=== PATIENT | female | born 1960 | race Caucasian/White ===

== ENCOUNTER 2018-08-09 15:47 | Emergency (ER) | payer MEDICARE ==
[~2018-08-09] VITALS: Ht 167.6 cm; Wt 64.5 kg
[~2018-08-09 15:47] MED LIST: CYMBALTA 30MG30 MG PO; DESYREL 100MG100 MG PO; GEODON 40MG40 MG PO; NEURONTIN800 MG/TAB PO; NORCO 325 MG-7.1 TAB PO; PHENERGAN 25 TA25 MG PO; RT SPIRIVA18 MCG IH; SINGULAIR 110 MG/TAB PO; SOMA 350MG350 MG/TAB PO; TEGRETOL 2200 MG/TA1 PO; ZONEGRAN 100MG100 MG PO; ZYRTEC 10MG10 MG PO
[2018-08-09 15:48] VITALS: BP 115/89; TEMP 97.8
[2018-08-09] MEDS ORDERED: KLONOPIN 0.5MG0.5 MG PO (17:11)
[2018-08-09] MEDS ORDERED: FERRO-TIME325 MG PO (17:11)
[2018-08-09] MEDS ORDERED: FLOVENT DI50 MCG/Act IH (17:12)
[2018-08-09] MEDS ORDERED: PRILOSEC 20MG20 MG PO (17:12)
[2018-08-09] MEDS ORDERED: SEROQUEL400 MG PO (17:13)
[2018-08-09] MEDS ORDERED: SEROQUEL50 MG PO ×2 (17:13→17:23)
[2018-08-09] MEDS ORDERED: UREA20% TOP (17:14)
[2018-08-09] MEDS ORDERED: DOXYCYCLINE 10100 MG PO (17:23)
[2018-08-09] MEDS ORDERED: CYMBALTA 30MG30 MG PO (17:23)
[2018-08-09] MEDS ORDERED: NEURONTIN800 MG/TAB PO (17:23)
[2018-08-09] MEDS ORDERED: KLONOPIN WAFER0.5 MG PO (17:23)
[2018-08-09] MEDS ORDERED: SEROQUEL XR400 M1 PO (17:23)
[2018-08-09 17:35] VITALS: PULSE 99
== END 2018-08-09 17:35 | disposition home or self-care (01) ==
LOC: COL.ER 15:47
DX: J40 Bronchitis, not specified as acute or chronic (principal); F41.9 Anxiety disorder, unspecified; F32.9 Major depressive disorder, single episode, unspecified; F17.210 Nicotine dependence, cigarettes, uncomplicated; Z79.51 Long term (current) use of inhaled steroids

== ENCOUNTER 2019-01-15 20:18 | Inpatient (IN) | payer MEDICARE, MEDICAID ==
[~2019-01-15] VITALS: Ht 175.3 cm; Wt 73.3 kg
[~2019-01-15 20:18] MED LIST changes: +DOXYCYCLINE 10100 MG PO; +FERRO-TIME325 MG PO; +FLOVENT DI50 MCG/Act IH; +KLONOPIN 0.5MG0.5 MG PO; +KLONOPIN WAFER0.5 MG PO; +PRILOSEC 20MG20 MG PO; +SEROQUEL XR400 M1 PO; +SEROQUEL400 MG PO; +SEROQUEL50 MG PO; +UREA20% TOP
[2019-01-15 21:44] VITALS: BP 134/71; PULSE 74; TEMP 98
[2019-01-15] MEDS ORDERED: BACLOFEN PO (21:50)
[2019-01-15] MEDS ORDERED: EPITOL PO (21:51)
[2019-01-15] MEDS ORDERED: COLACE 100100 MG/CAP PO (21:52)
[2019-01-15] MEDS ORDERED: CYMBALTA 60MG60 MG PO (21:53)
[2019-01-15] MEDS ORDERED: NEURONTIN PO (21:55)
[2019-01-15] MEDS ORDERED: IBU800 M1 PO (21:56)
[2019-01-15] MEDS ORDERED: REMERON 15M15 MG/TA1 PO (21:58)
[2019-01-15] MEDS ORDERED: ATARAX50 MG PO (21:58)
[2019-01-15] MEDS ORDERED: SEROQUEL400 MG PO (21:59)
[2019-01-15] MEDS ORDERED: SINGULAIR 110 MG/TAB PO (21:59)
[2019-01-15] MEDS ORDERED: DESYREL DIVIDO150 M1 PO (22:00)
--- NOTE | 2019-01-15 22:04 | NUR ---
Arrived via EMS from [facility]. Assessment complete. Patient very drowsy unable to stay awake for assesment. Lungs clear. Heart sounds normal. Bowels active x4. Pulses strong throughout. no edema noted. Denies needs at this time. Call light in reach. RIA Henderson notified of patient arrival.
--- NOTE | 2019-01-15 23:16 | NUR ---
Nicotine patch applied to right shoulder. Patient refusing telemetry. Beatriz aware. transport tank technician aware.
[2019-01-15 23:39] VITALS: BP 132/46; PULSE 90
--- NOTE | 2019-01-16 00:04 | NUR ---
Attempted to contact patient guardian Toña, left voicemail to call.
[2019-01-16 00:53] LABS: ALANINE AMINOTRANSFERASE 12 U/L (9-52); ALBUMIN 3.5 gm/dL (3.5-5.0); ALKALINE PHOSPHATASE 94 U/L (50-136); ANION GAP 9 mmol/L (7-16); AST,SGOT 25 U/L (15-37); BILIRUBIN,TOTAL < 0.1 mg/dL (0.0-1.0); BLOOD UREA NITROGEN 14 mg/dL (7-17); CALCIUM 8.8 mg/dL (8.4-10.2); CARBON DIOXIDE 25 mmol/L (22-30); CHLORIDE 94 mmol/L (98-107); CREATININE, serum 0.56 (0.52-1.25); GLUCOSE 118 mg/dL (74-106); POTASSIUM 3.9 mmol/L (3.4-5.0); SODIUM 128 mmol/L (137-145); TOTAL PROTEIN 6.4 gm/dL (6.4-8.2)
--- NOTE | 2019-01-16 01:01 | NUR ---
Recent NA result called to Beatriz. No new orders.
[2019-01-16 03:48] VITALS: BP 155/83; PULSE 81; TEMP 97.6
--- NOTE | 2019-01-16 04:18 | NUR ---
Up to restroom and returned to bed. Denies needs. Call light in reach.
--- NOTE | 2019-01-16 04:20 | NUR ---
Patient continues to refused telemetry.
[2019-01-16 06:25] LABS: HEMOGLOBIN 10.4 g/dl (12.5-16.0); MEAN CELL VOLUME 83 fl (80.0-100.0); MEAN CORPUSCULAR HEMOGLOBIN 28 pg (27.0-31.0); MEAN CORPUSCULAR HGB CONC 34 g/dl (33.0-37.0); MEAN PLATELET VOLUME 8.4 fl (7.4-10.4); PLATELET COUNT 288 K/mm3 (130-400); RED BLOOD COUNT 3.66 M/mm3 (4.10-5.30); REDCELL DISTRIBUTION WIDTH-CV 14.5 % (11.5-14.5)
[2019-01-16 06:30] LABS: HEMATOCRIT 30.4 % (37.0-47.0)
--- NOTE | 2019-01-16 07:04 | NUR ---
Report given to MARISOL Boston. Patient agitated this AM with staff. Easily redirected. Otherwise uneventful night. Call light in reach. Continues to refuse telemetry.
[2019-01-16 07:31] LABS: CALCIUM 8.8 mg/dL (8.4-10.2); CHOLESTEROL RISK RATIO 2.3; CREATININE, serum 0.52 (0.52-1.25); POTASSIUM 4.4 mmol/L (3.4-5.0)
--- NOTE | 2019-01-16 08:35 | NUR ---
Assessment complete. Pt sitting up in bed, A&O x 4. Breath sounds CTAB. BS active x 4. Pt reports pain to back 6 out of 10 on pain scale, refusing to take 800 mg dose of Gabapentin per eMAR order d/t taking 1000 mg normally. Pt getting very upset about not having medications ordered yet and wants to see doctor soon. IVF's infusing per orders through right forearm site without s/s of complications. No further needs reported. Call light in reach.
[2019-01-16 08:40] VITALS: BP 142/58; PULSE 87; TEMP 98.5
--- NOTE | 2019-01-16 08:45 | NUR ---
Doctor and PA notified of pt's request for home medications ordered and to see the doctor.
[2019-01-16 08:46] LABS: BAND 3 % (0-10); EOSINOPHIL 5 % (0-4); LYMPHOCYTE 30 % (20.0-51.0); METAMYELOCYTE 1 % (0-0); NEUTROPHILS 53 % (42.0-75.2); PLATELET ESTIMATE NORMAL (NORMAL)
--- NOTE | 2019-01-16 09:29 | NUR ---
Initial visit; Patient states she is [place] and not interested in [facility]. Workers Compensation Consultant wished her well.
--- NOTE | 2019-01-16 10:10 | NUR ---
SW attended clinical rounds to discuss discharge planning. Patient will discharge today. Patient mentioned that she has been working with Kassidy and Linda from [facility] (inpatient psych) in [place] to get admitted there for long-term psych treatment. Patient inquired if she could discharge from here to that facility. SW patito contact [facility] and fax a referral. Patient lives at home with her and caregiver, Tñoa Alfonso ([phone]). Patient does not have a PCP and she obtains prescriptions from [facility]. Patient does not report any DME or home health services, besides the caregiver. Patient follows with [facility] in [place]. SW does have a DPOA. SW will contact Toña, per patient request, with discharge plan.
--- NOTE | 2019-01-16 10:26 | NUR ---
RUBÉN spoke with Graciela from [facility]. She reports they are unable to accept her. SW reported this to patient. She reports she will continue working with Kassidy and Linda to get admitted to [facility] after she is discharged. Patient reports she will also follow up with [facility]. SW inquired if patient would like to be set up with a PCP. Patient reports she would like SW to speak with her caregiver, Toña. SW attempted to contact Toña. RUBÉN left a message.
--- NOTE | 2019-01-16 13:05 | NUR ---
Discharge instructions reviewed with pt regarding follow-up appointments and medications and diet recommendations. Pt verbalizes understanding, discharged home, ambulates out of facility accompanied by ROOF MECHANIC and pt's home care administrator.
== END 2019-01-16 13:15 | disposition home or self-care (01) | DRG 641 ==
LOC: MEDICAL 20:18
PROVIDERS: Nurse Practitioner; ADMIT Internal Medicine
DX: E87.1 Hypo-osmolality and hyponatremia (principal); F11.20 Opioid dependence, uncomplicated; F31.9 Bipolar disorder, unspecified; F41.9 Anxiety disorder, unspecified; M06.9 Rheumatoid arthritis, unspecified; F17.210 Nicotine dependence, cigarettes, uncomplicated; I10 Essential (primary) hypertension; F60.9 Personality disorder, unspecified; Z86.73 Personal history of transient ischemic attack (TIA), and cerebral infarction without residual deficits; Z88.2 Allergy status to sulfonamides; Z88.8 Allergy status to other drugs, medicaments and biological substances
CPT/HCPCS: 99222-AI; J7030

== ENCOUNTER 2019-02-15 13:26 | Emergency (ER) | payer MEDICARE, MEDICAID ==
[~2019-02-15] VITALS: Ht 165.1 cm; Wt 69.1 kg
[~2019-02-15 13:26] MED LIST changes: +ATARAX50 MG PO; +BACLOFEN PO; +COLACE 100100 MG/CAP PO; +CYMBALTA 60MG60 MG PO; +DESYREL DIVIDO150 M1 PO; +EPITOL PO; +IBU800 M1 PO; +NEURONTIN PO; +REMERON 15M15 MG/TA1 PO
[2019-02-15 13:30] VITALS: TEMP 99.3
[2019-02-15] MEDS ORDERED: ATARAX50 MG PO (13:44)
[2019-02-15] MEDS ORDERED: PRIL40 PO (13:45)
[2019-02-15] MEDS ORDERED: LYRICA 100MG C100 M1 PO (13:45)
[2019-02-15] MEDS ORDERED: SALINE 45 ML45 ML NS (13:46)
[2019-02-15] MEDS ORDERED: NEURONTIN300 MG/CAP PO (13:46)
[2019-02-15] MEDS ORDERED: EPITOL PO (13:47)
[2019-02-15] MEDS ORDERED: DESYREL 100MG100 MG PO ×2 (13:48→13:49)
[2019-02-15] MEDS ORDERED: REMERON 15M15 MG/TA1 PO (13:48)
[2019-02-15] MEDS ORDERED: STOOL SOFTENER100 M2 PO (13:49)
[2019-02-15] MEDS ORDERED: NEURONTIN100 MG/CAP PO (13:51)
[2019-02-15] MEDS ORDERED: SINGULAIR 110 MG/TAB PO (13:52)
[2019-02-15] MEDS ORDERED: CYMBALTA 60MG60 MG PO (13:52)
[2019-02-15] MEDS ORDERED: SEROQUEL400 MG PO (13:53)
[2019-02-15] MEDS ORDERED: MOTRIN 400400 MG/TAB PO (13:53)
[2019-02-15] MEDS ORDERED: FLONASEALLERGY NS (13:54)
[2019-02-15] MEDS ORDERED: THORAZINE100 MG/TAB PO (13:54)
[2019-02-15] MEDS ORDERED: CYMBALTA 30MG30 MG PO (13:56)
[2019-02-15] MEDS ORDERED: VENTOLIN0.09 MG IH (13:56)
[2019-02-15] MEDS ORDERED: RT ADVAIR 228 DISKUS IH (13:56)
[2019-02-15 14:09] LABS: BASO % 0.2 % (0.0-2.0); EOS # 0.1 (0.0-0.7); EOS % 1.4 % (0-4.0); GRAN # 4.4 (1.4-6.5); GRAN % 78.4 % (42.2-75.2); LYMPH # 0.6 (1.2-3.4); LYMPH % 10.5 % (20.0-51.0); MEAN CELL VOLUME 81 fl (80.0-100.0); MEAN CORPUSCULAR HGB CONC 34 g/dl (33.0-37.0); MEAN PLATELET VOLUME 8.3 fl (7.4-10.4); MONO # 0.5 (0.1-0.6); MONO % 8.8 % (1.7-9.3); PLATELET COUNT 247 K/mm3 (130-400); RED BLOOD COUNT 3.06 M/mm3 (4.10-5.30)
[2019-02-15 14:12] LABS: HEMATOCRIT 24.7 % (37.0-47.0); HEMOGLOBIN 8.5 g/dl (12.5-16.0); MEAN CORPUSCULAR HEMOGLOBIN 28 pg (27.0-31.0)
[2019-02-15 14:22] LABS: ALBUMIN 3.5 gm/dL (3.5-5.0); BILIRUBIN,TOTAL 0.1 mg/dL (0.0-1.0); C-REACTIVE PROTEIN 6.2 mg/dL (0.0-0.9); CALCIUM 8.1 mg/dL (8.4-10.2); CREATININE, serum 0.52 (0.52-1.25); POTASSIUM 4.8 mmol/L (3.4-5.0); TOTAL PROTEIN 6.6 gm/dL (6.4-8.2)
[2019-02-15] MEDS ORDERED: FERROUS SU325 MG/TAB PO (15:17)
[2019-02-15 15:45] VITALS: BP 139/79; PULSE 92
[2019-02-16] MEDS ORDERED: LIORESAL 1010 MG/TAB PO (19:53)
== END 2019-02-15 15:49 | disposition home or self-care (01) ==
LOC: COL.ER 13:26
PROVIDERS: Family Medicine
DX: E87.1 Hypo-osmolality and hyponatremia (principal); D64.9 Anemia, unspecified; F17.210 Nicotine dependence, cigarettes, uncomplicated; F31.9 Bipolar disorder, unspecified; Z98.51 Tubal ligation status; F20.9 Schizophrenia, unspecified; Z90.710 Acquired absence of both cervix and uterus; Z86.73 Personal history of transient ischemic attack (TIA), and cerebral infarction without residual deficits; Z79.51 Long term (current) use of inhaled steroids
CPT/HCPCS: J7030

== ENCOUNTER 2019-02-16 15:13 | Inpatient (IN) | payer MEDICARE ==
[~2019-02-16] VITALS: Ht 167.6 cm; Wt 68.2 kg
[~2019-02-16 15:13] MED LIST changes: +FERROUS SU325 MG/TAB PO; +FLONASEALLERGY NS; +LYRICA 100MG C100 M1 PO; +MOTRIN 400400 MG/TAB PO; +NEURONTIN100 MG/CAP PO; +NEURONTIN300 MG/CAP PO; +PRIL40 PO; +RT ADVAIR 228 DISKUS IH; +SALINE 45 ML45 ML NS; +STOOL SOFTENER100 M2 PO; +THORAZINE100 MG/TAB PO; +VENTOLIN0.09 MG IH
[2019-02-16 16:02] LABS: MEAN CELL VOLUME 81 fl (80.0-100.0); MEAN CORPUSCULAR HGB CONC 34 g/dl (33.0-37.0); MEAN PLATELET VOLUME 8.1 fl (7.4-10.4); PLATELET COUNT 263 K/mm3 (130-400); REDCELL DISTRIBUTION WIDTH-CV 14.2 % (11.5-14.5)
[2019-02-16 16:14] LABS: ALANINE AMINOTRANSFERASE 21 U/L (9-52); ALBUMIN 3.5 gm/dL (3.5-5.0); ALKALINE PHOSPHATASE 91 U/L (50-136); ANION GAP 10 mmol/L (7-16); AST,SGOT 31 U/L (15-37); BILIRUBIN,TOTAL 0.1 mg/dL (0.0-1.0); BLOOD UREA NITROGEN 12 mg/dL (7-17); CALCIUM 8.3 mg/dL (8.4-10.2); CARBON DIOXIDE 25 mmol/L (22-30); CREATININE, serum 0.53 (0.52-1.25); GLUCOSE 112 mg/dL (74-106); POTASSIUM 4.6 mmol/L (3.4-5.0); SODIUM 122 mmol/L (137-145); TOTAL PROTEIN 6.5 gm/dL (6.4-8.2)
[2019-02-16 16:17] LABS: HEMATOCRIT 24.2 % (37.0-47.0); HEMOGLOBIN 8.3 g/dl (12.5-16.0); MEAN CORPUSCULAR HEMOGLOBIN 28 pg (27.0-31.0)
[2019-02-16 16:18] LABS: CHLORIDE 88 mmol/L (98-107)
[2019-02-16 16:25] LABS: TROPONIN-I < 0.012 ng/mL (0.000-0.035)
[2019-02-16 16:44] LABS: BAND 2 % (0-10); EOSINOPHIL 1 % (0-4); LYMPHOCYTE 12 % (20.0-51.0); NEUTROPHILS 77 % (42.0-75.2); PLATELET ESTIMATE NORMAL (NORMAL)
[2019-02-16 17:05] LABS: MUCOUS Present /lpf; PH 6 (5-8); SQUAMOUS EPITHELIAL 0-2 /hpf; URINE APPEARANCE Clear; URINE BACTERIA None Seen /hpf; URINE BILIRUBIN Negative (NEGATIVE); URINE BLOOD Negative (NEGATIVE); URINE COLOR Yellow; URINE GLUCOSE Negative (NEGATIVE); URINE KETONE Negative (NEGATIVE); URINE LEUKOCYTE ESTERASE Negative (NEGATIVE); URINE NITRATE Negative (NEGATIVE); URINE PROTEIN(semi-quant) Negative (NEGATIVE); URINE RBC 0-2 /hpf; URINE UROBILINOGEN Negative (NEGATIVE); URINE WBC 0-2 /hpf
[2019-02-16 17:16] LABS: COLLECTION METHOD CLEAN CATCH
[2019-02-16 17:29] LABS: TRICYCLIC ANTIDEPRESS URINE POSITIVE
--- NOTE | 2019-02-16 19:50 | NUR ---
Patient arrived to medical floor. Assessment complete. Left lower lobe crackles otherwise clear. Heart sounds normal. Bowels active x4. Pulses strong throughout. No edema noted. INT to right forearm without complications. Orientated to medical floor. All questions answered.
[2019-02-16] MEDS ORDERED: LIORESAL 1010 MG/TAB PO (19:53)
--- NOTE | 2019-02-16 21:15 | NUR ---
Patient called 911 to have police at hospital during time of initation of suicide precautions. Also called [facility] police to request life insurance sales.
--- NOTE | 2019-02-16 22:15 | NUR ---
[facility] Police arrived at this time. Charge nurse Jessica and house supervisior Francis, spoke with officer Denise. Officer did not speak with patient. Stated per their supervisior on shift "nothing we can do. If patient wakes up she can call us again and we will talk to her then."
--- NOTE | 2019-02-16 22:48 | NUR ---
2004: Patient answered yes to 4 out of 6 suicidal assessment questions. RIA Henderson notified. 1 to 1 sitter ordered per protocol. House supervisior notified. Suidical precautions attempted to initiate. Patient refusing. 2029: Sitter arrived to room. Patient refusing to allow any one in room. Explained to patient protocols and reasoning for sitter and suicide precautions. Patient refused. Used inappropriate laugauage to request staff to leave. Sitter remained near room. 2099: Patient request to leave AMA due to sitter/suicidal requirement. Patient found to have consultant internship and cigarettes. House supervisior in room. Patient refusing to give consultant internship and cigarettes to staff, also refusing to put on wharton gown. After several attempts patient gave consultant internship to security and cigarettes to nursing staff. Patient requested everyone to leave room and one nurse remain in room to place wharton gown on. Patient began yelling at nurse. House supervisior returned to room. Patient pushed house supervisior into nurse. Security intervened and assisted patient back to bed. 2124: Beatriz on floor. Verbal order for Haldol 5mg IM now, Benadryl 50mg IM now, and Ativan 2mg IM now. Given by MARISOL Blanco House supervisior.
--- NOTE | 2019-02-16 23:10 | NUR ---
Pt arrived to ICU05 via medical bed X2 staff assist. Pt was able to get up and walk from one bed to the other with a steady gait. Pt was cooperative with brief focused assessment. Will need to continue assessment through out the shift. Pt has been observed with what appears to be easily aggitated with the example of the pt asking this nurse what television will turn on with the remote, followed by the question of what the other television was for. After this nurse explained Anu from [facility] appeared on the screen and reported hearing of explination and just wanted to introduce onself. Pt looked at this this nurse and reported "I dont want her up there." When it was explained that all Anu was doing was introducing herself the pt said "oh" and exchanged greetings and proceeded to ask about medication that "is already on my list".
[2019-02-16 23:15] VITALS: BP 156/80; PULSE 88
--- NOTE | 2019-02-16 23:20 | NUR ---
Patient agreed to transfer to ICU. Transferred at this time
--- NOTE | 2019-02-16 23:30 | NUR ---
Pt has a 1:1 sitter for continuous monitoring.
[2019-02-17] VITALS (7 sets, daily range): BP systolic 12–156; BP diastolic 60–80; PULSE 75–89; TEMP 97.7–98.6
[2019-02-17 01:13] LABS: ACETAMINOPHEN < 10 ug/mL (10-30); ALCOHOL(ethanol),MEDICAL < 10 mg/dL; SALICYLATE < 1.0 mg/dL; SODIUM 120 mmol/L (137-145)
--- NOTE | 2019-02-17 07:15 | NUR ---
Pt report provided to Armida Mcclain RN & Stephani DAMON.
[2019-02-17 07:43] LABS: BASO % 0.2 % (0.0-2.0); EOS # 0.1 (0.0-0.7); EOS % 2.3 % (0-4.0); GRAN # 3.1 (1.4-6.5); GRAN % 72.6 % (42.2-75.2); LYMPH # 0.6 (1.2-3.4); MEAN CELL VOLUME 80 fl (80.0-100.0); MEAN CORPUSCULAR HGB CONC 35 g/dl (33.0-37.0); MEAN PLATELET VOLUME 7.8 fl (7.4-10.4); MONO # 0.4 (0.1-0.6); MONO % 9.2 % (1.7-9.3); PLATELET COUNT 275 K/mm3 (130-400); RED BLOOD COUNT 3.15 M/mm3 (4.10-5.30); REDCELL DISTRIBUTION WIDTH-CV 14.2 % (11.5-14.5)
[2019-02-17 07:44] LABS: HEMATOCRIT 25.1 % (37.0-47.0); HEMOGLOBIN 8.7 g/dl (12.5-16.0); MEAN CORPUSCULAR HEMOGLOBIN 28 pg (27.0-31.0)
[2019-02-17 07:57] LABS: CALCIUM 8.5 mg/dL (8.4-10.2); CREATININE, serum 0.43 (0.52-1.25); POTASSIUM 4.7 mmol/L (3.4-5.0)
--- NOTE | 2019-02-17 11:00 | NUR ---
Gets self up to bathroom, this RN into room to replace tele monitor. Asks patient to put gown over second arm, states no! I am not doing this! Takes tele monitor and throws at this nurse. House Sup and ICU director into room and help desclate situation.
--- NOTE | 2019-02-17 14:53 | NUR ---
RUBÉN attended clinical rounds. Once patient is medically cleared, she will be seen by [facility]. SW will follow up with patient once she is screened. RUBÉN did contacted patient's caregiver/niece, Toña ([phone]), to clarify if patient has a court appointed guardian. Toña reported that she is patient's DPOA-HC but she was not appointed by the court to be her guardian. Toña reports that patient signed the DPOA when she was at [facility]. RUBÉN requested Toña provide copies of those documents for patient's chart. Toña confirmed that patient does not have a PCP. Patient is followed by a provider at [facility] in [place]. Patient's prefered pharmacy is [facility]. There is no reported DME or home health services used. RUBÉN clarified where patient lives currently. Toña reported that patient previously lived with her but not currently. RUBÉN was later informed by ICU nurse that patient has been staying at the [facility] here in [place] but the staff will not allow patient to return there. RUBÉN will continue to follow.
[2019-02-17 15:01] LABS: CALCIUM 8.6 mg/dL (8.4-10.2); CREATININE, serum 0.37 (0.52-1.25); POTASSIUM 4.4 mmol/L (3.4-5.0)
--- NOTE | 2019-02-17 19:20 | NUR ---
Report received from Rasheed Mcclain RN at this time. Pt resting in bed with all the lights off. Makes wants and needs known to staff members.
--- NOTE | 2019-02-17 19:45 | NUR ---
Lab approached pt in attempts to complete a BMP draw. Pt refused and raised voice at labor relations consultant with this nurse hearing "no" from outside the room.
--- NOTE | 2019-02-17 20:15 | NUR ---
Pt moved from ICU05 to ICU03 in bed with mask on face for TB precautions/ negative pressure room.
[2019-02-17 22:24] LABS: PROCALCITONIN 0.02 ng/mL (0.00-0.09)
[2019-02-18] VITALS: BP 148/84; PULSE 85; TEMP 98.1
[2019-02-18 03:32] VITALS: O2SAT 97
--- NOTE | 2019-02-18 03:35 | NUR ---
Pt pressed the call light to inquire about getting ice cream, pudding and another pepsi. Prior to entering the room lab was called although busy at this time. Discussed needing another lab draw this morning with pt and pt agreed to getting it done at 0730 when awake. Lab notified.
[2019-02-18 04:00] VITALS: BP 137/68; PULSE 76
--- NOTE | 2019-02-18 07:00 | NUR ---
Pt pressed call light so this nurse entered with 0700 scheduled medication and apple juice (which pt had requested the morning prior). Pt requested the blind to the window be closed, although blind was already closed, so it was manuevered towards the opposite direction to block out more light. Pt was informed of morning medication and apple juice that is provided. At this time pt stated "Protonix, I dont want that, I am sleeping." Pt was notified of the time and also encouraged to allow lab to come in, since they were in the unit, to "get morning labs that you promised over with for the morning." At this time pt raised voice saying "Im not even awake yet. I have to pee, I am about to go in my panties." This nurse notified pt that it was okay to pee and reminded pt of promise. Pt stated "I am not doing anything, getting labs, with out coffee first." Pt was notified that yesterday coffee was discouraged and approval from the doctor would need to be obtained prior to giving the pt coffee although it would be provided as soon as possible. Pt stated "I can make choices about my body", in response this nurse replied "you are right you can, although you are here for medical help and the decisions that are made are to make you better." Pt agreed for lab to return to draw morning labs. Lab was called and notified.
--- NOTE | 2019-02-18 07:10 | NUR ---
Report provided to Justa DAMON's at this time.
[2019-02-18 07:34] LABS: BASO % 0.3 % (0.0-2.0); EOS # 0.1 (0.0-0.7); EOS % 2.9 % (0-4.0); GRAN # 2.4 (1.4-6.5); GRAN % 68.5 % (42.2-75.2); HEMATOCRIT 29.3 % (37.0-47.0); HEMOGLOBIN 10.1 g/dl (12.5-16.0); LYMPH # 0.6 (1.2-3.4); LYMPH % 18.3 % (20.0-51.0); MEAN CELL VOLUME 80 fl (80.0-100.0); MEAN CORPUSCULAR HEMOGLOBIN 28 pg (27.0-31.0); MEAN CORPUSCULAR HGB CONC 35 g/dl (33.0-37.0); MEAN PLATELET VOLUME 7.8 fl (7.4-10.4); MONO # 0.3 (0.1-0.6); MONO % 9.7 % (1.7-9.3); PLATELET COUNT 307 K/mm3 (130-400); RED BLOOD COUNT 3.67 M/mm3 (4.10-5.30); REDCELL DISTRIBUTION WIDTH-CV 14.1 % (11.5-14.5)
[2019-02-18 07:40] LABS: CALCIUM 8.9 mg/dL (8.4-10.2); CREATININE, serum 0.45 (0.52-1.25); POTASSIUM 4.5 mmol/L (3.4-5.0)
--- NOTE | 2019-02-18 08:20 | NUR ---
Entered pt room for assessment. Pt asking for coffee. Explained that she was not able to have the water at this time. Pt immediately started yelling at this nurse, "it's my fucking body" you can't make that choice. Explained that due to labs and why she as here she was not able to at this time until okayed by . Pt started yelling and threw juice cup and soda across the room. Also threw menu as breakfast had been offered. Meds offered and pt would not respond. Asked again and pt yelling "youre a fucking cunt, you little bitch just set them down." Explained to pt that I could not just leave meds unattended on the table. Pt again started yelling and cussing and this nurse, "youre a fucking bitch and you ruin everything. I don't want breakfast anymore you ruined my appetite. What did you ruin your parents' lives too." Nurse left room at that time.
--- NOTE | 2019-02-18 09:51 | NUR ---
Dr Lott at bedside to see pt. Did ok for pt to have 1 glass of coffee per day.
--- NOTE | 2019-02-18 11:18 | NUR ---
Patient will be transfered to the medical floor today. Dixie Screen will be done once patient is medically cleared.
--- NOTE | 2019-02-18 11:41 | NUR ---
Pt called nurse to room again asking for fluids. Explained again that she was on fluid restriction. Pt stating "nobody told me that". It was reported per previous nurse that fluid restriction was addressed and education provided. Pt becoming very upset and crying again. Pt stated if she is thirsty "then I'll drink from the faucet or toilet. I was in [facility] for 10 years." Explained to pt this was not acceptable behavior. She states she doesn't care. Pratibha, ICU director notified as will talk with engineering regarding turning off water. Tiffany, social work here and taking with [facility]antac[facility] as well as Dr Mahajan to try and obtain medical clearance for screen to take place. Will continue to follow.
--- NOTE | 2019-02-18 11:57 | NUR ---
Pt requesting Ativan for "my nerves". Explained to pt that ativan was not one of her medication options.
--- NOTE | 2019-02-18 12:45 | NUR ---
Report called to Nicki DAMON and pt taken up by wheelchair.
--- NOTE | 2019-02-18 16:00 | NUR ---
PATIENT IS A&OX4. VSS. BOWEL SOUNDS ACTIVE ALL FOUR QUADRANTS. PATIENT TOELRATING DIET WITHOUT COMPLAINTS OF N/V. RIGHT FOREARM TO INT. CALL LIGHT WITHIN REACH. REVERSE ISOLATION PRECAUTIONS IN PLACE. NO OTHER NEEDS AT THIS TIME.
[2019-02-18 19:12] LABS: CALCIUM 8.2 mg/dL (8.4-10.2); CREATININE, serum 0.59 (0.52-1.25); POTASSIUM 4.4 mmol/L (3.4-5.0)
--- NOTE | 2019-02-18 19:20 | NUR ---
Report received from Nicki on surgical. Pt resting in bed. Once oncoming and off going nurse approached pt, pt had a smile on her face and was pleasant and cooperative with cares. Pt makes wants and desires known. Review of only 1 beverage left until midnight, pt requested second cup of coffee with some pudding, and ice cream for a snack.
--- NOTE | 2019-02-18 19:30 | NUR ---
PATIENT IS UPSET AND CRYING STATING, "I'M SHAKING ON THE INSIDES AND NEED SOMETHING TO CALM ME DOWN. PATIENT IS IN UPRIGHT POSITION AND ROCKING BACK AND FORTH. PATIENT DIFFICULT TO CONSOLE ABOUT NOT BEING ABLE TO DISCHARGE TODAY. HOSPITALISTS CALLED AND NOTIFIED OF PATIENT SITUATION. ORDER GIVEN FOR B52 IM INJECTION.
--- NOTE | 2019-02-18 19:46 | NUR ---
REPORT GIVEN TO MARISOL TEIXEIRA.
[2019-02-18 20:00] VITALS: BP 133/59; PULSE 92
--- NOTE | 2019-02-18 21:23 | NUR ---
Pt continues to be cooperative with cares. Requested that this nurse sit at bedside. Pt has been talkative to this nurse about psych diagnosis, family including mother who pt reported passed this last August which pt ended up going into inpatient care at [facility] for "11 days". Pt is currently resting in bed with television on.
--- NOTE | 2019-02-18 21:41 | NUR ---
Report provided to Peyton.
[2019-02-18 22:54] VITALS: BP 143/68; PULSE 99; TEMP 98.1
--- NOTE | 2019-02-18 22:58 | NUR ---
Patient called for pudding and brought in by UNDERGROUND MINE MACHINERY MECHANIC.
--- NOTE | 2019-02-18 23:02 | NUR ---
patient took 2 icecreams and 2 puddings.
--- NOTE | 2019-02-19 | NUR ---
Coffee with 3 creamers and 3 sweetners given. Patient pleasant at this time. INT secured with more tape and flushes with ease.
--- NOTE | 2019-02-19 01:00 | NUR ---
Patient requested 2nd coffee and explained orders for only 1 cup per day. DIAL EQUIPMENT ENGINEER offered pop and when not in immediately with pop, patient pounding on door. Pop given.
--- NOTE | 2019-02-19 03:10 | NUR ---
Patient has been resting quietly in bed. Respirations with ease.
[2019-02-19 03:19] VITALS: BP 143/72; PULSE 84; TEMP 98.7
--- NOTE | 2019-02-19 03:28 | NUR ---
Awakened for vitals and requested pudding and icecream but explained would given pudding due to icecream is a fluid.
--- NOTE | 2019-02-19 06:12 | NUR ---
PATIENT RESTING WITH EYES CLOSED WHEN NURSE INTO GIVE MED. DENIES NEEDS.
[2019-02-19 07:31] LABS: BASO % 0.3 % (0.0-2.0); EOS # 0.2 (0.0-0.7); EOS % 4.6 % (0-4.0); GRAN # 2.2 (1.4-6.5); GRAN % 58.7 % (42.2-75.2); LYMPH # 0.9 (1.2-3.4); LYMPH % 24.6 % (20.0-51.0); MEAN CELL VOLUME 80 fl (80.0-100.0); MEAN CORPUSCULAR HGB CONC 34 g/dl (33.0-37.0); MEAN PLATELET VOLUME 7.6 fl (7.4-10.4); MONO # 0.4 (0.1-0.6); MONO % 10.4 % (1.7-9.3); PLATELET COUNT 296 K/mm3 (130-400); RED BLOOD COUNT 3.42 M/mm3 (4.10-5.30); REDCELL DISTRIBUTION WIDTH-CV 13.9 % (11.5-14.5)
[2019-02-19 07:41] LABS: CALCIUM 8.5 mg/dL (8.4-10.2); CREATININE, serum 0.48 (0.52-1.25); POTASSIUM 4.7 mmol/L (3.4-5.0)
[2019-02-19 07:43] LABS: HEMATOCRIT 27.3 % (37.0-47.0); HEMOGLOBIN 9.3 g/dl (12.5-16.0); MEAN CORPUSCULAR HEMOGLOBIN 27 pg (27.0-31.0)
[2019-02-19 08:53] VITALS: BP 149/70; PULSE 91; TEMP 98.1
--- NOTE | 2019-02-19 10:00 | NUR ---
Patient has been very demanding this morning. She does not want to be alone in the room. Asked if she had a friend or family that could come sit with her, she stated now. Explained we can check on her and come in when she needs something but we are not able to sit with her the entire time. She verbalized understanding. She has been verbally abusive with the RUBBER STAMP DIES INSPECTOR. Explained that is not ok. That we are trying to help and that treating the RUBBER STAMP DIES INSPECTOR'S badly will not help the situation. She verbalized understanding. She has been very up and down with her mood swings. She has gone from yelling and screaming to being calm and making jokes. Explained several times she has to stay in the room because she has not been cleared of TB. This is also upsetting her. Explained several times the fluid restriction and that she can not have more than one cup of coffee per shift. She verbalized understanding. No other changes at this time. Call light within reach.
[2019-02-19 11:16] VITALS: BP 138/76; PULSE 89; TEMP 98.5
[2019-02-19] MEDS ORDERED: ZITHROMAX500 M2 PO (11:39)
--- NOTE | 2019-02-19 12:50 | NUR ---
Patient is discharging against medical advice. Follow up made for her with [facility] in [place]. She needs an appointment with [facility] as well but could not get a hold of them. Message left with them to call the patient with a follow up apointment. She stated she had an appointment already scheduled. Explained she has scripts to quill picking machine operator at [facility]. Dr Mahajan discussed all the risks with patient of leaving AMA. All belongings packed up and sent with patient. Patient got her money from the safe and paid it to the gift shop for mackay she bought. Her cigarettes were also returned to her upon discharge. Patient walked out with RADHA Ayers.
[2019-02-19 15:21] LABS: QUANTIFERON TB GOLD Negative (Negative)
== END 2019-02-19 12:50 | disposition left against medical advice (07) | DRG 640 ==
LOC: COL.ER 15:13 → MEDICAL 18:38 → ICU 18:38 → SURG 02-18 15:26
PROVIDERS: Emergency Medicine; Internal Medicine Pulmonary Disease; Nurse Practitioner; Nurse Practitioner Family; ADMIT Student in an Organized Health Care Education/Training Program
DX: E87.1 Hypo-osmolality and hyponatremia (principal); J18.1 Lobar pneumonia, unspecified organism; F11.20 Opioid dependence, uncomplicated; R45.851 Suicidal ideations; F41.9 Anxiety disorder, unspecified; I10 Essential (primary) hypertension; M06.9 Rheumatoid arthritis, unspecified; F31.9 Bipolar disorder, unspecified; M79.2 Neuralgia and neuritis, unspecified; D64.9 Anemia, unspecified; E87.70 Fluid overload, unspecified; F17.210 Nicotine dependence, cigarettes, uncomplicated; Z90.710 Acquired absence of both cervix and uterus; Z86.73 Personal history of transient ischemic attack (TIA), and cerebral infarction without residual deficits; Z88.2 Allergy status to sulfonamides; Z88.8 Allergy status to other drugs, medicaments and biological substances
CPT/HCPCS: 99223-AI; 99233-AI; 99239; A4216; J0456; J0696; J1200; J1630; J2060; J2405; J3230; J7030; J7050